=== PATIENT | male | born 1965 | race Caucasian/White ===

== ENCOUNTER 2021-09-23 05:46 | Day surgery (SDC) | payer BC ==
[2021-09-23] MEDS ORDERED: fentaNYL 100 MCG/2 ML SDV IV ONE ×3 (05:47→06:40)
[2021-09-23] MEDS ORDERED: Midazolam 1 MG/ML 2 ML SDV IV ONE ×3 (05:47→06:41)
[2021-09-23] MEDS ORDERED: Dextrose 5%-0.45% NaCl 1,000 ML IV SCH (06:15)
[2021-09-23] MEDS ORDERED: Midazolam 1 MG/ML 2 ML SDV ONE (06:18)
[2021-09-23] MEDS ORDERED: fentaNYL 100 MCG/2 ML SDV ONE (06:19)
[2021-09-23 08:26] VITALS: PULSE 68
[2021-09-23 09:13] VITALS: BP 138/76
== END 2021-09-23 08:50 | disposition home or self-care (01) ==
LOC: DL.ENDO 05:46
PROVIDERS: ATTEND Internal Medicine Gastroenterology
DX: K31.7 Polyp of stomach and duodenum (principal); D50.9 Iron deficiency anemia, unspecified; K44.9 Diaphragmatic hernia without obstruction or gangrene; E66.09 Other obesity due to excess calories; K21.9 Gastro-esophageal reflux disease without esophagitis; E03.9 Hypothyroidism, unspecified; E80.6 Other disorders of bilirubin metabolism; E78.5 Hyperlipidemia, unspecified; L91.0 Hypertrophic scar; H52.209 Unspecified astigmatism, unspecified eye; Z98.890 Other specified postprocedural states; Z01.812 Encounter for preprocedural laboratory examination; Z20.822 Contact with and (suspected) exposure to COVID-19
CPT/HCPCS: 87077; J2250; J3010; J7042; U0002

== ENCOUNTER 2021-09-29 05:55 | Day surgery (SDC) | payer BC ==
[~2021-09-29 05:55] MED LIST: Midazolam 1 MG/ML 2 ML SDV ONE; fentaNYL 100 MCG/2 ML SDV ONE
[2021-09-29] MEDS ORDERED: fentaNYL 100 MCG/2 ML SDV IV ONE ×3 (05:56→07:06)
[2021-09-29] MEDS ORDERED: Midazolam 1 MG/ML 2 ML SDV IV ONE ×7 (05:56→07:13)
[2021-09-29] MEDS ORDERED: Sodium Chloride 0.9% 10 ML Syringe FLUSH PRN (07:06)
[2021-09-29] MEDS ORDERED: Dextrose 5%-0.45% NaCl 1,000 ML IV SCH (07:15)
[2021-09-29] MEDS ORDERED: Sodium Chloride 0.9% 10 ML Syringe FLUSH SCH (09:00)
[2021-09-29 17:25] VITALS: BP 126/73; PULSE 68
== END 2021-09-29 09:10 | disposition home or self-care (01) ==
LOC: DL.ENDO 05:55
PROVIDERS: ATTEND Internal Medicine Gastroenterology
DX: D50.9 Iron deficiency anemia, unspecified (principal); K21.9 Gastro-esophageal reflux disease without esophagitis; E66.09 Other obesity due to excess calories; E03.9 Hypothyroidism, unspecified; E80.6 Other disorders of bilirubin metabolism; E78.5 Hyperlipidemia, unspecified; L91.0 Hypertrophic scar; H52.209 Unspecified astigmatism, unspecified eye; Z98.890 Other specified postprocedural states; Z01.812 Encounter for preprocedural laboratory examination; Z20.822 Contact with and (suspected) exposure to COVID-19; Z68.34 Body mass index [BMI] 34.0-34.9, adult
CPT/HCPCS: 45378; 87635; J2250; J3010; J7042; U0002